=== PATIENT | male | born 1955 | race Caucasian/White ===

== ENCOUNTER 2020-04-05 08:57 | Day surgery (SDC) | payer OTHER ==
[2020-04-01 11:46] LABS: BASOPHILS % (AUTO) 0.8 % (0-1); EOSINOPHILS # (AUTO) 0.1 X10'3 (0-0.9); EOSINOPHILS % (AUTO) 2.5 % (0-6); LYMPHOCYTES # (AUTO) 1.6 X10'3 (1.1-4.8); LYMPHOCYTES % (AUTO) 28.4 % (21-51); MEAN CORPUSCULAR HEMOGLOBIN 28.7 PG (27.0-31.0); MEAN CORPUSCULAR HGB CONC 33.4 g/dL (33.0-36.5); MEAN CORPUSCULAR VOLUME 85.9 FL (78-98); MEAN PLATELET VOLUME 6.9 FL (7.4-10.4); MONOCYTES # (AUTO) 0.8 X10'3 (0-0.9); MONOCYTES % (AUTO) 14.1 % (2-12); NEUTROPHILS # (AUTO) 3.1 X10'3 (1.8-7.7); NEUTROPHILS % (AUTO) 54.2 % (42-75); PRE OP PLATELET COUNT 367 X10'3 (140-440); RED BLOOD COUNT 5.59 X10'6 (4.70-6.10)
[2020-04-01 12:01] LABS: ALBUMIN 3.6 G/DL (3.4-5.0); ALKALINE PHOSPHATASE 66 IU/L (46-116); BLOOD UREA NITROGEN 16 MG/DL (7-18); CALCIUM 9.2 MG/DL (8.5-10.1); CHLORIDE 100 MMOL/L (99-107); CREATININE 1.14 MG/DL (0.60-1.10); PRE OP ALT 23 U/L (30-65); PRE OP ANION GAP 6 (8-16); PRE OP AST 18 U/L (10-37); PRE OP BILIRUB, TOTAL 0.4 MG/DL (0.0-1.0); PRE OP GLUCOSE 191 MG/DL (70-104); PRE OP POTASSIUM 3.9 MMOL/L (3.4-5.1); PRE OP SODIUM 134 MMOL/L (135-145); TOTAL CARBON DIOXIDE 28.4 MMOL/L (24-32); TOTAL PROTEIN 7.1 G/DL (6.4-8.2); eGFR 65 ML/MIN
[2020-04-01 12:59] LABS: HEMOGLOBIN A1C 7.4 % (4.5-6.2)
[2020-04-05] VITALS (18 sets, daily range): BP systolic 93–149; BP diastolic 55–96
[~2020-04-05] VITALS: Ht 175.3 cm; Wt 128.0 kg
[~2020-04-05 08:57] MED LIST: ASPI-529 PO; FAMO40TA58 PO; GABA600T13 PO; GEMF600T89 PO; HCTZ25T PO; LOSA50TA3 PO; METF750T46 PO; VANCOMYCIN INJ 1000 MG in NORMAL SALINE 250ml IV.SOLN IV ONE; albuterol 2.5 MG/3 ML nebule NEB ONE; ceFAZolin/D5W- 1GM premix 50 ML IV ONE; cefazolin/dext.iso 2gm/50ml 50 ML IV ONE; famotidine 20mg tablet PO ONE; ringers solution, lacted 1,000 ML IV SCH
[2020-04-05] MEDS ORDERED: BUPIVAcaine/PF 2.5 mg/ml (0.25%) 30ml vial ONE (11:59)
[2020-04-05] MEDS ORDERED: sevoflurane 250ml liquid IH ONE (12:06)
[2020-04-05] MEDS ORDERED: fentaNYL/PF 50MCG/1 ML 2ML syringe ONE (12:10)
[2020-04-05] MEDS ORDERED: propofol inj 20 ML IV ONE (12:10)
[2020-04-05] MEDS ORDERED: midazolam 2 mg/2 ml injection ONE (12:10)
[2020-04-05] MEDS ORDERED: ringers solution, lacted 1,000 ML IV SCH (12:46)
[2020-04-05] MEDS ORDERED: proCHLORperazine 10 MG/2 ml inj IV PRN (12:50)
[2020-04-05] MEDS ORDERED: ondansetron/PF 4mg/2ml inj IV PRN (12:50)
[2020-04-05] MEDS ORDERED: morphine 2 MG/ML inj. syringe IV PRN (12:50)
[2020-04-05] MEDS ORDERED: meperidine/PF 25mg/ml syringe IV PRN ×2 (12:50)
--- NOTE | 2020-04-05 13:50 | NUR ---
Received from OR via [facility], accompanied by Anesthesiologist DR GORDON and report given by Anesthesiologist. PT DROWSY, DENIES PAIN, LEFT ARM W/BIAS WRAP COVERING INCISIONS/DRSGS CDI, ARM BRACE ON, FINGERS PWD, MUSICAL THERAPIST 1-2 SECONDS. Addendum: 04/05/20 at 1409 by Riya Cruz RN Amended: Links added.
[2020-04-05] MEDS: meperidine/PF 25mg/ml syringe IV PRN ×2 (14:13→14:26)
[2020-04-05] MEDS: morphine 4 MG/ML inj SYRINge IV PRN ×2 (14:42→14:54)
[2020-04-05] MEDS ORDERED: acetaminophen 1,000mg/100ml IV 100 ML IV ONE (15:05)
[2020-04-05] MEDS: HYDROmorphone inj. 0.5 MG/0.5 ML DISP.SYRIN IV PRN ×2 (15:11→15:37)
[2020-04-05] MEDS ORDERED: HYDROcodone/acetaminophen 10/325mg tab PO ONE (15:55)
[2020-04-05] MEDS ORDERED: ketorolac trometh. 30mg/ml inj. IV ONE (15:55)
--- NOTE | 2020-04-05 16:50 | NUR ---
PAIN TOLERABLE, AWARE, D/C INSTRUCTIONS GIVEN AND GONE OVER W/PT WHO VERBALIZED UNDERSTANDING, PT D/CD TO HOME VIA W/C TO PRIVATE VEHICLE W/O INCIDENT. Addendum: 04/05/20 at 1729 by Riya Cruz RN Amended: Links added.
== END 2020-04-05 16:50 | disposition home or self-care (01) ==
LOC: PAS 08:57
PROVIDERS: ATTEND Orthopaedic Surgery
DX: G56.22 Lesion of ulnar nerve, left upper limb (principal); G56.02 Carpal tunnel syndrome, left upper limb; M19.022 Primary osteoarthritis, left elbow; I10 Essential (primary) hypertension; K21.9 Gastro-esophageal reflux disease without esophagitis; E66.01 Morbid (severe) obesity due to excess calories; Z68.41 Body mass index [BMI] 40.0-44.9, adult; E11.59 Type 2 diabetes mellitus with other circulatory complications; Z98.890 Other specified postprocedural states; Z87.891 Personal history of nicotine dependence; Z72.89 Other problems related to lifestyle; Z79.82 Long term (current) use of aspirin; Z79.84 Long term (current) use of oral hypoglycemic drugs; Z96.622 Presence of left artificial elbow joint; Z79.899 Other long term (current) drug therapy; Z11.59 Encounter for screening for other viral diseases
CPT/HCPCS: 24358; 36415; 64719; 64721; 80053; 82948; 83036; 85025; 87635; 93005; A6222; J0131; J0690; J1170; J1885; J2175; J2250; J2270; J2704; J3010; J3370; J3490; L3999; A4215; A4618; A6250; A6449; A6455; A7000; J7120